=== PATIENT | male | born 1985 | race Caucasian/White ===

== ENCOUNTER 2017-11-06 01:24 | Inpatient (IN) | payer SELFPAY ==
[~2017-11-06] VITALS: Ht 188 cm; Wt 80.7 kg
--- NOTE | 2017-11-06 02:23 | NUR ---
PT IS IN ROOM #4B. DR THOMAS EVALUATED THE PT.
[2017-11-06] MEDS ORDERED: MORPHINE SULFATE 2 MG/1 ML DISP.SYRIN ONE (02:24)
[2017-11-06] MEDS ORDERED: ONDANSETRON 4 MG/2 ML VIAL ONE (02:25)
[2017-11-06] MEDS ORDERED: MORPHINE SULFATE 2 MG/1 ML DISP.SYRIN IV ONE (02:30)
[2017-11-06] MEDS ORDERED: ONDANSETRON 4 MG/2 ML VIAL IV ONE (02:30)
[2017-11-06] MEDS ORDERED: IV NORMAL SALINE 1000 ML BAG IV ONE (02:30)
[2017-11-06 02:33] LABS: BASOPHILS # (AUTO) 0.1 K/uL (0.0-8.0); BASOPHILS % (AUTO) 0.6 % (0.0-2.0); EOSINOPHILS % (AUTO) 0.2 % (0.0-7.0); HEMOGLOBIN 14.1 g/dL (12.5-16.3); LYMPHOCYTES % (AUTO) 16.1 % (20.5-51.5); MEAN CORPUSCULAR HEMOGLOBIN 30.4 uug (23.8-33.4); MEAN CORPUSCULAR HGB CONC 34 g/dL (32.5-36.3); MEAN CORPUSCULAR VOLUME 88.6 fL (73.0-96.2); MONOCYTES % (AUTO) 8.2 % (0.0-11.0); NEUTROPHILS # (AUTO) 9.2 K/uL (1.8-8.9); NEUTROPHILS % (AUTO) 74.9 % (38.5-71.5); PLATELET COUNT (AUTO) 224 K/uL (152-348); RED BLOOD CELL COUNT(AUTO) 4.63 MIL/uL (4.06-5.63); WHITE BLOOD COUNT (AUTO) 12.4 K/uL (3.6-10.2)
[2017-11-06 02:38] LABS: CREATININE 1.2 mg/dL (0.6-1.3); POTASSIUM 3.4 mmol/L (3.5-5.1)
[2017-11-06 02:42] LABS: *BILIRUBIN,URIN NEGATIVE (NEGATIVE); *BLOOD, URINE Trace-intact (NEGATIVE); *CLARITY,URINE SLIGHTLY CLOUDY (CLEAR); *COLOR,URINE YELLOW (YELLOW); *KETONES,URINE TRACE (NEGATIVE); *PROTEIN,URINE TRACE (NEGATIVE); *UROBILINOGEN,URINE 0.2 E.U./dl (NORMAL); LEUKOCYTE ESTERASE ,URINE NEGATIVE (NEGATIVE); NITRITE, URINE NEGATIVE (NEGATIVE); UGLUCOSE NEGATIVE (NEGATIVE)
--- NOTE | 2017-11-06 02:43 | NUR ---
Pt out of ER for CT.
[2017-11-06 02:44] LABS: BILIRUBIN,DIRECT 0.2 mg/dL (0.0-0.2); BILIRUBIN,TOTAL 0.8 mg/dL (0.2-1.0); TOTAL PROTEIN, SERUM 7.4 g/dL (6.4-8.2)
--- NOTE | 2017-11-06 03:04 | NUR ---
Pt back to ER from CT.
[2017-11-06 03:06] LABS: BACTERIA,URINE NONE SEEN /HPF (NONE SEEN); RBC,URINE 0-3 /HPF (0-3); SQUAMOUS EPITHELIAL CELL,UR FEW /HPF (NONE SEEN); WBC,URINE 0-3 /HPF (0-3)
[2017-11-06 03:07] LABS: CALCIUM OXALATE CRYSTALS,UR FEW /HPF (NONE SEEN); MUCUS,URINE MODERATE /LPF (0-FEW)
[2017-11-06] MEDS ORDERED: PIPERACILLIN SODIUM/TAZOBACTAM 3.375 G in IV DEXTROSE 5% 50 ML IV ONE (03:30)
[2017-11-06] MEDS ORDERED: PIPERACILLIN/TAZOBACTAM/D5W 50 ML IV ONE (03:48)
--- NOTE | 2017-11-06 04:04 | NUR ---
Report given to Jordon CAZARES Medsurg.
--- NOTE | 2017-11-06 04:10 | NUR ---
Dr. Myers on panel call with Rayo Medellin NP.
[2017-11-06] MEDS ORDERED: ACETAMINOPHEN 325 MG TABLET PO PRN (04:15)
[2017-11-06] MEDS ORDERED: Z GUARD REMEDY PASTE 57 GM TUBE TOP PRN (04:15)
[2017-11-06] MEDS ORDERED: MAGNESIUM HYDROXIDE 30 ML LIQUID UDC PO PRN (04:15)
[2017-11-06] MEDS ORDERED: ONDANSETRON 4 MG/2 ML VIAL IV PRN (04:15)
[2017-11-06] MEDS ORDERED: IV NS 1000 ML 1,000 ML IV PRN (04:15)
[2017-11-06] MEDS ORDERED: HYDROCODONE/APAP 5-325MG TABLET PO PRN (04:15)
[2017-11-06 04:30] VITALS: BP 114/71
--- NOTE | 2017-11-06 04:30 | NUR ---
Received patient from ER nurse. Patient stable upon admission with no acute distress. Vital signs within range. Pertinent assessment completed. Admit Dx of appendicitis. Admitted under [employer] Vignesh/MD Potter. Patient is A/Ox4 & able to make all needs known. Currently complaining of left sided/flank pain. Will medicate per MD order & reassess pain level. Noted with right forearm 20G IV which is patent & flushing well. Patient currently NPO. Call light within reach of patient. Will continue to monitor through shift.
[2017-11-06] MEDS: MORPHINE SULFATE 2 MG/1 ML DISP.SYRIN IV PRN ×2 (05:04→18:21)
--- NOTE | 2017-11-06 06:28 | NUR ---
Patient sleeping comfortably & easily arousable. No acute distress noted. Pain reassessed, medication effective. IV NS running into right forearm at 75cc/hr. No infiltration or swelling noted at IV site. All needs attended to. Safety measures implemented. Call light within reach. Will endorse to oncoming shift.
[2017-11-06 11:21] VITALS: BP 106/59
[2017-11-06] MEDS ORDERED: PIPERACILLIN/TAZOBACTAM/D5W 50 ML IV SCH (12:00)
[2017-11-06] MEDS ORDERED: BUPIVACAINE 0.25% 30 ML VIAL ONE (15:09)
[2017-11-06] MEDS ORDERED: LIDOCAINE 1%-EPI 1:100,000 20 ML VIAL ONE (15:10)
--- NOTE | 2017-11-06 15:28 | NUR ---
TAKEN DOWN TO SURGERY BY SURGERY NURSES VIA BED
[2017-11-06] MEDS ORDERED: ROCURONIUM BROMIDE 50 MG/5 ML VIAL ONE (15:45)
[2017-11-06] MEDS ORDERED: MIDAZOLAM HCL 2 MG/2 ML VIAL ONE (15:45)
[2017-11-06] MEDS ORDERED: SUCCINYLCHOLINE CHLORIDE 200 MG/10 ML VIAL ONE (16:19)
[2017-11-06] MEDS ORDERED: MEPERIDINE 50 MG/1 ML DISP.SYRIN ONE (16:46)
[2017-11-06] MEDS ORDERED: KETOROLAC TROMETHAMINE 30 MG INJ ONE (17:10)
[2017-11-06] MEDS ORDERED: FENTANYL CITRATE 100 MCG/2 ML AMPUL ONE (17:24)
[2017-11-06] MEDS: POTASSIUM CHLORIDE 50 ML IV SCH ×2 (18:26→20:00)
--- NOTE | 2017-11-06 19:30 | NUR ---
Received patient from day shift nurse. Patient in stable condition with no acute distress noted. Vital signs within range. Patient returned from surgery during day shift s/p appendectomy. Patient currently denies pain & SOB. Abdominal incision dressings are clean, dry, & intact. No s/s of infection noted at surgical site. IV site site is flushing well & intact. To start on IV ATBs every 8 hours. Call light within reach of patient. Will continue to monitor through shift.
[2017-11-06 20:00] VITALS: BP 119/58
[2017-11-06] MEDS: CEFAZOLIN 1 G in PREMIXED 1 EACH IV SCH (21:04)
[2017-11-07] MEDS: CEFAZOLIN 1 G in PREMIXED 1 EACH IV SCH ×2 (01:37→10:41)
[2017-11-07] MEDS: MORPHINE SULFATE 2 MG/1 ML DISP.SYRIN IV PRN (03:43)
--- NOTE | 2017-11-07 03:43 | NUR ---
Patient in 10/10 pain in the right side of abdomen radiating to right upper shoulder. BP at 133/74, HR of 70, RR of 20, Temp of 97.7, O2 sat of 100% room air. Administered 2mg of Morphine per MD order. Encouraged patient to walk and use incentive spirometer. Will call MD sonography technologist for further orders & continue to monitor patient.
[2017-11-07] MEDS ORDERED: MORPHINE SULFATE 2 MG/1 ML DISP.SYRIN IV STA (04:24)
[2017-11-07 04:30] VITALS: BP 139/71
--- NOTE | 2017-11-07 04:34 | NUR ---
New order from ARLYN Medellin to administer another dose of Morphine 2mg IV once. Will carry out order & continue to monitor.
[2017-11-07 06:32] LABS: BASOPHILS % (AUTO) 0.2 % (0.0-2.0); HEMATOCRIT 44.5 % (36.7-47.1); HEMOGLOBIN 15.3 g/dL (12.5-16.3); LYMPHOCYTES # (AUTO) 1.4 K/uL (20.0-40.0); LYMPHOCYTES % (AUTO) 11.7 % (20.5-51.5); MEAN CORPUSCULAR HEMOGLOBIN 31.3 uug (23.8-33.4); MEAN CORPUSCULAR HGB CONC 35 g/dL (32.5-36.3); MEAN CORPUSCULAR VOLUME 90.7 fL (73.0-96.2); MONOCYTES # (AUTO) 0.9 K/uL (2.0-10.0); MONOCYTES % (AUTO) 6.9 % (0.0-11.0); NEUTROPHILS % (AUTO) 81.2 % (38.5-71.5); PLATELET COUNT (AUTO) 234 K/uL (152-348); WHITE BLOOD COUNT (AUTO) 12.3 K/uL (3.6-10.2)
[2017-11-07 06:38] LABS: CREATININE 1.3 mg/dL (0.6-1.3); MAGNESIUM 1.9 mg/dL (1.8-2.4); POTASSIUM 3.9 mmol/L (3.5-5.1)
[2017-11-07 06:48] LABS: THYROID STIMULATING HORMONE 0.878 mIU/mL (0.358-3.740)
[2017-11-07] MEDS ORDERED: DOCUSATE SODIUM 100 MG CAPSULE PO ONE (09:52)
[2017-11-07 11:42] VITALS: BP 125/66
[2017-11-07] MEDS ORDERED: LIDOCAINE HCL 2% 20 ML VIAL MC ONE (14:29)
[2017-11-07] MEDS ORDERED: GLYCOPYRROLATE 0.2 MG/ML VIAL MC ONE (14:29)
[2017-11-07] MEDS ORDERED: SEVOFLURANE 250 ML BOTTLE IH ONE (14:29)
[2017-11-07] MEDS ORDERED: ONDANSETRON 4 MG/2 ML VIAL IV ONE (14:29)
[2017-11-07] MEDS ORDERED: DEXAMETHASONE SOD PHOSPHATE 4 MG INJ IV ONE (14:29)
[2017-11-07] MEDS ORDERED: NEOSTIGMINE METHYLSULFATE 10 MG/10 ML VIAL IV ONE (14:29)
[2017-11-07] MEDS ORDERED: PROPOFOL 200 MG/20 ML BOTTLE IV ONE (14:29)
== END 2017-11-07 14:30 | disposition home or self-care (01) | DRG 343 ==
LOC: ER 01:29 → MED 04:19
PROVIDERS: ADMIT Nurse Practitioner Acute Care; ATTEND Nurse Practitioner Acute Care
PROC: 0DTJ4ZZ Resection of Appendix, Percutaneous Endoscopic Approach (ICD-10-PCS; principal; 2017-11-06 15:41)
DX: K35.80 Unspecified acute appendicitis (principal); Z87.09 Personal history of other diseases of the respiratory system
CPT/HCPCS: 36415; 83605; 83690; 83735; 84100; 84443; 85025; 85610; 86850; 86900; 86901; 93005; A4649; A4663; J0330; J0690; J1100; J1885; J2175; J2250; J2270; J2405; J2543; J2710; J3010; J3480; J3490; J7030; L8699